=== PATIENT | female | born 1995 | race Caucasian/White ===

== ENCOUNTER 2019-07-27 06:16 | Emergency (ER) | payer OTHER ==
[~2019-07-27] VITALS: Ht 162.6 cm; Wt 54.4 kg
[2019-07-27] MEDS ORDERED: PHENAZOPYRIDINE HCL 100 MG TABLET ONE (06:59)
[2019-07-27] MEDS ORDERED: PHENAZOPYRIDINE HCL 100 MG TABLET PO ONE (07:00)
[2019-07-27 07:02] LABS: *BILIRUBIN,URIN NEGATIVE (NEGATIVE); *BLOOD, URINE 3+ (NEGATIVE); *CLARITY,URINE SLIGHTLY CLOUDY (CLEAR); *COLOR,URINE YELLOW (YELLOW); *KETONES,URINE NEGATIVE (NEGATIVE); *UROBILINOGEN,URINE 0.2 E.U./dl (NORMAL); LEUKOCYTE ESTERASE ,URINE 1+ (NEGATIVE); NITRITE, URINE NEGATIVE (NEGATIVE); UGLUCOSE NEGATIVE (NEGATIVE)
[2019-07-27 07:04] LABS: *URINE HCG, QUAL NEGATIVE (NEGATIVE)
[2019-07-27 07:21] LABS: BACTERIA,URINE FEW /HPF (NONE SEEN); RBC,URINE 80-100 /HPF (0-3); SQUAMOUS EPITHELIAL CELL,UR FEW /HPF (NONE SEEN)
--- NOTE | 2019-07-27 07:49 | NUR ---
pt was evaluated by dr olivera. ptwas d/c'd to home. d/c instructions given to the pt.
[2019-07-27 07:50] VITALS: BP 124/71
== END 2019-07-27 07:51 | disposition home or self-care (01) ==
LOC: ER 06:26
DX: R30.0 Dysuria (principal); R31.29 Other microscopic hematuria; F32.9 Major depressive disorder, single episode, unspecified; F41.9 Anxiety disorder, unspecified
CPT/HCPCS: 84703; 87077; 87086; A4663